=== PATIENT | female | born 2000 | race Caucasian/White ===

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

== ENCOUNTER 2020-07-05 15:45 | Day surgery (SDC) | payer OTHER ==
[2020-07-05 16:52] VITALS: BP 109/67; TEMP 98.6; BMI 23.2
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
== END 2020-07-05 20:17 | disposition home or self-care (01) ==
LOC: EEVIPCON 15:45 → L&D/OP 15:45
PROVIDERS: ATTEND Obstetrics & Gynecology
DX: O26.853 Spotting complicating pregnancy, third trimester (principal); O99.013 Anemia complicating pregnancy, third trimester; D64.9 Anemia, unspecified; O09.293 Supervision of pregnancy with other poor reproductive or obstetric history, third trimester; Z3A.29 29 weeks gestation of pregnancy

== ENCOUNTER 2020-07-21 09:30 | Day surgery (SDC) | payer OTHER ==
[2020-07-21 09:57] VITALS: BMI 23.2
[2020-07-21 09:59] VITALS: BP 104/63; TEMP 98
[2020-07-21] MEDS ORDERED: Iron Sucrose Complex 500 MG in Sodium Chloride 0.9% 250 ML 250 ML IVPB SCH (10:30)
[2020-07-21] MEDS ORDERED: Acetaminophen 500 MG TAB PO PRN (10:30)
[2020-07-21] MEDS ORDERED: FLU VACC QS2020-21(6MOS UP)/PF 60 MCG/0.5 ML SYRINGE IM ONE (11:00)
== END 2020-07-21 16:30 | disposition home or self-care (01) ==
LOC: L&D/OP 09:30
PROVIDERS: ATTEND Obstetrics & Gynecology
DX: O99.013 Anemia complicating pregnancy, third trimester (principal); Z3A.00 Weeks of gestation of pregnancy not specified
CPT/HCPCS: J1756; J7050

== ENCOUNTER 2020-07-21 17:24 | Day surgery (SDC) | payer OTHER ==
[2020-07-21 17:58] VITALS: BMI 23.2
[2020-07-21] MEDS ORDERED: diphenhydrAMINE 25 MG CAP PO SCH (18:00)
--- NOTE | 2020-07-21 18:02 | PDOC.LDHP ---
Labor and Delivery H&P Chief complaint: other (Feet Swelling) HPI: 20yo @ 31wks presents following an iron infusion earlier today and subsequent pedal swelling. Pt stated that during and immediately after the infusion she was feeling fine. On he way home she stopped to get gas and when she was standing there she started to feel her right foot was swollen. This progressed to both of her feet and feeling like it was going up her lower legs. The swelling caused her feet to feel tingly. Denies any difficulty breathing, swallowing, rash, dizziness, palpitations. Current gestational age (weeks): 31 (3) Grav: 3 Para: 1 Current complications: other (anemia of ) Past Medical History: None Current medications: pre- vitamins, iron Previous surgical history: none Allergies/Adverse Reactions: Allergies Allergy/AdvReac Type Severity Reaction Status Date / Time No Known Drug Allergies Allergy Verified 07/21/20 17:58 Social history: none - Physical Exam Vital signs reviewed and normal: yes General: NAD, resting, other (no pharyngeal swelling, drooling, difficulty swallowing, muffled voice) Heart: RRR Lungs: other (CTAB, no wheezing/stridor) Abdomen: NTTP Extremeties: other (mild non-pitting, primarily pedal, slight to lower legs; Skin: no erythema, urticaria) FHT: category 1, variability present [place] contractions every: 0 - Assessment Possible Infusion Reaction - 3rd Trimester IUP - Plan -: -Pedal swelling likely 2/2 IVF with iron infusion -Observe for 1 hour for progression of sx -50mg benadryl to cover for possible delayed allergic reaction Plan: 1 hour of monitoring - pt feeling better, swelling improving, no additional sx developed. Discussed return precautions. Keep routine follow up as previously scheduled.
[2020-07-21 18:06] VITALS: BP 108/68; TEMP 98.2
[2020-07-21] MEDS ORDERED: FLU VACC QS2020-21(6MOS UP)/PF 60 MCG/0.5 ML SYRINGE IM ONE (21:00)
== END 2020-07-21 18:49 | disposition home or self-care (01) ==
LOC: L&D/OP 17:24
PROVIDERS: ATTEND Obstetrics & Gynecology
DX: O99.891 Other specified diseases and conditions complicating pregnancy (principal); M79.89 Other specified soft tissue disorders; O99.013 Anemia complicating pregnancy, third trimester; D64.9 Anemia, unspecified; Z3A.31 31 weeks gestation of pregnancy
CPT/HCPCS: Q0163

== ENCOUNTER 2020-09-08 20:38 | Inpatient (IN) | payer OTHER ==
[~2020-09-08 20:38] MED LIST: Bupivacaine/Epinephrine 0.25% 30 ML VIAL ONE
[2020-09-08 21:16] VITALS: BMI 24.8
[2020-09-08] MEDS ORDERED: hydrALAZINE 20 MG/ML VIAL SLOW IVP PRN ×2 (21:31→21:50)
[2020-09-08] MEDS ORDERED: FLU VACC QS2020-21(6MOS UP)/PF 60 MCG/0.5 ML SYRINGE IM ONE (21:45)
[2020-09-08] MEDS ORDERED: Lidocaine 1% (PF) 30 ML VIAL SC PRN (21:50)
[2020-09-08] MEDS ORDERED: Ondansetron PF 4 MG/2 ML Vial IVP PRN (21:50)
[2020-09-08] MEDS ORDERED: Ibuprofen 800 MG TAB PO PRN (21:50)
[2020-09-08] MEDS ORDERED: Promethazine HCl 25 MG/ML VIAL IM PRN (21:50)
[2020-09-08] MEDS ORDERED: Butorphanol Tartrate 1 MG/ML VIAL SLOW IVP PRN (21:50)
[2020-09-08] MEDS ORDERED: HYDROcodone/Acetaminophen 5/325 mg Tablet PO PRN ×2 (21:50)
--- NOTE | 2020-09-08 21:51 | PDOC.BPN ---
- Brief Progress Note OBGYN At bedside Due to CTX pain, we will admit and check GBS.
[2020-09-08] MEDS: Lactated Ringer's 1,000 ML IV SCH (22:00)
--- NOTE | 2020-09-08 22:29 | HP ---
It is now 2133. Time of evaluationis roughly 2114. LOCATION: Labor and Delivery Triage in room #6. This is a patient of Dr. Ojeda. CHIEF COMPLAINT: Possible contractions at 38 weeks and 3 days. HISTORY OF PRESENT ILLNESS: This is a 20-year-old G3, P1, who is at 38 weeks and 3 days with an EDC of 09/20, complained of contractions about every 3 to 5 minutes or so. She denies any vaginal bleeding or leakage of fluid, and she has good movement. She denies any recent trauma or any other issues. She does state that she had a transfusion of iron on July 21, 2020, and then she came back for some tingling on one side of her arm, but she was evaluated and sent home. REVIEW OF SYSTEMS: GENERAL: She has had no sick contacts and no history of trauma. She denies any general malaise. CARDIOVASCULAR: The patient denies any chest pain. RESPIRATORY: No shortness of breath or dyspnea. ABDOMEN: No GI issues reported. EXTREMITIES: The patient denies any pain or abnormal swelling in her extremities outside of her normal for . PAST MEDICAL HISTORY: Negative except for anemia of . MEDICATIONS: Include: 1. Iron. 2. vitamins. PAST SURGICAL HISTORY: None. OBSTETRICAL HISTORY: She has had a vaginal delivery x1 at term. ALLERGIES: NONE. SOCIAL HISTORY: Negative for alcohol, tobacco, and drug use. PHYSICAL EXAMINATION: VITAL SIGNS: Blood pressure 109/62, pulse is 105, respirations are 18, and temperature is 99.1. GENERAL: She is in no acute distress, but looks like she is having some contraction discomfort. ABDOMEN: Soft and nontender and gravid and size is consistent with a gestational age. PELVIC: Cervical exam; in brief, there is no gross evidence of leakage of fluid or rupture of membranes and her cervix is 3 cm dilated, 50% effaced, -2 station, and should be noted she was 3 cm in the office at her last check. EXTERNAL MONITORING: I evaluated the strip and I find the stored strip to be reactive with moderate variability. She is dixon pretty regularly about every 3 minutes or so. Cat 1. Again, on external monitor, heart rate is category 1 with contractions every 3 minutes. ASSESSMENT: This is a 20-year-old G3, P1, with a previous vaginal delivery in the past, who is at 38 weeks and 3 days, which is early term with regular contractions and what looks like latent labor in early term. GBS Neg. PLAN: 1. Labor observation. 2. Because she is having regular contractions, I suspect she will stay, but we will see what she does in 2 hours. 3. Pain management p.r.n. 4. If there is evidence of labor progress, we will admit her and we will notify Dr. Ojeda to see if he will resume care or if we will manage. Job ID: [id number] [facility]
[2020-09-08 23:07] LABS: Mean Corpuscular HGB CONC 33.7 g/dL (32.0-36.0); Mean Corpuscular Hemoglobin 27.9 pg (25.0-35.0); Mean Corpuscular Volume 82.6 fL (78.0-98.0); Mean Platelet Volume 8.3 fL (7.4-10.4); Platelet Count 175 thou/uL (130-400); White Blood Cell (WBC) Count 10.1 thou/uL (4.8-10.8)
[2020-09-08 23:46] LABS: HBSAg Index 0.17 S/CO (0-0.99); HIV (1/2) Antibody/Antigen Non-Reactive (NonReactive); HIV 1/2 INDEX 0.18 S/CO (<1.00); Hep B Surf Ag Non-Reactive S/CO (NonReactive)
[2020-09-08 23:48] LABS: Syphilis Antibody Nonreactive (Nonreactive); Syphilis Antibody Index 0.02 S/CO (<1.00 Non-Reactive)
--- NOTE | 2020-09-09 00:59 | PDOC.LDPN ---
Labor & Delivery Progress Note - Subjective Subjective: comfortable - Objective Vital signs reviewed and normal: yes General: NAD, resting, breathing through contractions SVE: 70/-2 FHT: category 1 (accels, no deccels, baseline 110) [place] contractions every: 3-4 Plan: continue plan of care -: 20yo @ 38.4 presented for ctx. #Term, SIUP, latent labor - SVE 50/-2 at presentation - SVE /-2 @ 0030 - Reassuring FHT, regular ctx q3-4min - continue expectant management PCP: Rusty Dispo: Continue expectant management. Recheck SVE in approx 4 hours.
[2020-09-09] MEDS ORDERED: Fentanyl 4 mcg/Bup 0.1% Cadd 100 ML in Premix Bag 1 BAG EPIDURAL SCH (02:15)
[2020-09-09] MEDS ORDERED: Naloxone HCl 0.4 mg/ml Vial IVP PRN ×2 (02:51)
[2020-09-09] MEDS ORDERED: Ondansetron PF 4 MG/2 ML Vial IVP PRN ×2 (02:51→11:13)
[2020-09-09] MEDS ORDERED: ePHEDrine 50 MG/ML VIAL SLOW IVP PRN (02:51)
[2020-09-09] MEDS ORDERED: diphenhydrAMINE 50 MG/ML VIAL IVP PRN (02:51)
[2020-09-09] MEDS ORDERED: Lactated Ringer's 500 ML IV PRN (02:51)
[2020-09-09] MEDS ORDERED: Promethazine HCl 25 MG/ML VIAL IM PRN ×2 (02:51→11:13)
[2020-09-09] MEDS: Lactated Ringer's 1,000 ML IV SCH (02:51)
[2020-09-09] MEDS ORDERED: Acetaminophen 325 MG TAB PO PRN (02:51)
[2020-09-09] MEDS ORDERED: Fentanyl 4 mcg/Bupivacaine 0.1% Cassette 100 ML EPIDURAL SCH (03:00)
[2020-09-09] MEDS ORDERED: Communication Order-Pharmacy FS SCH (03:00)
[2020-09-09 06:00] LABS: SARS-CoV-2 MS2 Positive; SARS-CoV-2 N Gene Negative; SARS-CoV-2 S Gene Negative; SARS-CoV-2 by NAA Not Detected (NotDetected); SARS-CoV-2 orf1ab Negative
--- NOTE | 2020-09-09 06:04 | PDOC.LDPN ---
Labor & Delivery Progress Note - Subjective Subjective: vaginal pressure - Objective Vital signs reviewed and normal: yes General: resting Uterine fundus: non tender SVE: Last at 0430 Dilation: 6 Effacement: 90% Station: -1 FHT: category 1 [place] contractions every: looks like every 2-3 Plan: continue plan of care (Labor at 38 weeks 4 days. Now 6cm last check. Cat 1.)
--- NOTE | 2020-09-09 08:59 | PRG ---
DATE OF SERVICE: 09/09/2020 TIME: 0815 hours. TIME OF EVALUATION: 0800 hours to 0812 hours. LOCATION: [facility] bed 6. Please label this ER evaluation at bedside. In brief, I evaluated the patient just as we were having our [employer] team check out. Dr. Gifford and Dr. Strong joined me after I started the evaluation. First in the room were Dr. Gifford and myself. We were called for vaginal bleeding of about 100 to 200 mL of blood on the pad. When we arrived, there was no active bleeding any further, although she had passed a very small clot. We evaluated the tracing and there was great variability. There was a small variable deceleration noted initially when we arrived. She was 8 cm dilated, completely effaced, and -[address] Gifford performed an AROM with me at bedside, so that we could try to assess the amniotic fluid. Amniotic fluid was clear with slight blood tinge. We are still at bedside after the immediate AROM and no cord prolapse was noted. She is now having variable decelerations but again with continued moderate variability. We put on the pulse ox on the mother to confirm slight tachycardia and she is slightly tachycardic, although she states that she is quite anxious and does not want a . She does not have a family member here because her is with another child at home. Contractions about every 1 to 2 minutes. DIAGNOSIS: Active labor with vaginal bleeding at 8 cm, possible marginal separation versus other. PLAN: 1. Second IV started. 2. Typed and crossed for 2 units. 3. Stat H and H now. 4. I have discussed with her at bedside the possibility of a if this does not resolve. Dr. Strong is with me and we have discussed plan of care as well. Questions answered for the patient. Job ID: [id number]
[2020-09-09] MEDS: NS w/ Oxytocin 30 units 500 ML IV PRN ×2 (09:00→10:04)
[2020-09-09] MEDS ORDERED: Misoprostol 200 MCG TAB ONE ×4 (09:10→09:11)
[2020-09-09] MEDS ORDERED: Misoprostol 200 MCG TAB PR PRN (09:21)
[2020-09-09 09:34] LABS: Hemoglobin 10.9 g/dL (12.0-16.0); Platelet Count 151 thou/uL (130-400)
--- NOTE | 2020-09-09 09:58 | DN ---
DATE OF PROCEDURE: 09/09/2020 TIME OF SERVICE: 0853. PREDELIVERY DIAGNOSES: 1. Vaginal bleeding, concerning for possible abruption with moderate variable decelerations and complete +3 station at 38 weeks gestation with spontaneous onset of labor. 2. Group B strep negative. POSTDELIVERY DIAGNOSES: 1. Vaginal bleeding, concerning for possible abruption with moderate variable decelerations and complete +3 station at 38 weeks gestation with spontaneous onset of labor. 2. Group B strep negative. 3. Approximately, 5% marginal abruption as noted grossly by clot on the placenta. PROCEDURES PERFORMED: Spontaneous vaginal delivery without laceration. SURGEON: John Ojeda MD for [facility] ANESTHESIA: Epidural. BLOOD LOSS: Quantitative blood loss, 300 mL. DRAINS: Nunez removed prior to delivery. OPERATIVE FINDINGS: 1. Male , Apgars and weight pending. Vigorous, initially placed on the maternal abdomen with delayed cord clamp and cut. 2. Placenta delivered spontaneously approximately 3 minutes post delivery with gross appearance of a small marginal abruption, approximately 5% of placental surface area. 3. Hemostasis. No lacerations and correct counts at the end of the procedure. DISPOSITION: Routine care. DESCRIPTION OF PROCEDURE: I was called for delivery after Dr. Quesada managed the patient during the evening. Upon arrival, she was noted to have moderate variable deceleration to be complete and +3 station. No efforts of maternal pushing had been attempted by the nursing staff. The patient was set up in lithotomy for delivery. With the next contraction, the patient pushed 3 times and delivered spontaneously over an intact perineum. No nuchal cord was noted. Copious, bloody, but otherwise, clear amniotic fluid was noted. The baby was placed on the maternal abdomen, and delayed cord clamp and cut carried out approximately 1 to 2 minutes post delivery. Usual cord blood sample was obtained. Gas was not obtained. The placenta delivered spontaneously and the gross findings as noted. Because, the decision was made not to send the placenta for pathology, as no benefit beyond noting the small area of abruption at the margin with an old clot could be appreciated. Inspection of the vagina revealed there to be no lacerations. The uterus firmed up within 60 seconds of delivery. The patient entered into routine care. Of note, the patient was chronically anemic during the and received IV iron x1. Predelivery hematocrit was 29%. Job ID: [id number]
[2020-09-09] MEDS ORDERED: Milk Of Magnesia 30 ML UDCUP PO PRN (11:13)
[2020-09-09] MEDS ORDERED: Zolpidem Tartrate 5 MG TAB PO PRN (11:13)
[2020-09-09] MEDS ORDERED: hydrALAZINE 20 MG/ML VIAL SLOW IVP PRN (11:13)
[2020-09-09] MEDS ORDERED: Lanolin Ointment 7 GM TUBE TOP PRN (11:13)
[2020-09-09] MEDS ORDERED: Preparation H Ointment 28 GM TUBE PR PRN (11:13)
[2020-09-09] MEDS ORDERED: HYDROcodone/Acetaminophen 5/325 mg Tablet PO PRN ×2 (11:13)
[2020-09-09] MEDS ORDERED: Benzocaine-Menthol 82.5 ML CAN TOP PRN (11:13)
[2020-09-09] MEDS ORDERED: diphenhydrAMINE 25 MG CAP PO PRN (11:13)
[2020-09-09] MEDS ORDERED: Bisacodyl 10 MG SUPP PR PRN (11:13)
[2020-09-09] MEDS ORDERED: NS / Oxytocin 40 units/1000ml 1,000 ML IV SCH (11:13)
[2020-09-09] MEDS ORDERED: Adacel (T-DAP) 0.5 ML SYRINGE IM ONE (11:13)
[2020-09-09] MEDS: Ibuprofen 800 MG TAB PO SCH ×2 (14:57→21:28)
[2020-09-09] MEDS: Ferrous Sulfate 325 MG TAB PO SCH (18:06)
[2020-09-09] MEDS: Docusate Calcium (SURFAK) 240 MG CAP PO SCH (21:28)
[2020-09-10] MEDS: Ibuprofen 800 MG TAB PO SCH ×3 (05:40→21:57)
[2020-09-10] MEDS ORDERED: FLU VACC QS2020-21(6MOS UP)/PF 60 MCG/0.5 ML SYRINGE IM ONE (09:00)
[2020-09-10] MEDS: Prenatal Vitamin 1 TAB PO SCH (09:08)
[2020-09-10] MEDS: Docusate Calcium (SURFAK) 240 MG CAP PO SCH ×2 (09:08→21:57)
[2020-09-10] MEDS: Ferrous Sulfate 325 MG TAB PO SCH ×2 (09:09→17:03)
--- NOTE | 2020-09-10 14:29 | PRG ---
DATE OF SERVICE: 09/10/2020 TIME OF SERVICE: 1400 hours. SUBJECTIVE: Ms. Uribe was seen, utilizing virtual visit HIPAA compliant platform on [employer]. She has no complaints. The patient in nursing notes reports scant lochia. OBJECTIVE: VITAL SIGNS: Temperature 98.1, pulse 72, respirations 16, blood pressure 104/67. HEENT: Within normal limits. LUNGS: On auscultation, bilaterally clear according to the nursing. ABDOMEN: Soft and nontender with a firm fundus and normal lochia. LABORATORY DATA: Immediate hematocrit was 34.2% yesterday. The patient's is in the NICU with mild respiratory distress requiring face mask oxygen secondary to tachypnea. The patient states that Nursery Care believes that this is secondary to bloody amniotic fluid. Anticipated stay of the baby in the nursery is 3 to 5 days. IMPRESSION: Doing well on day #1, status post vaginal delivery with very small marginal abruption without laceration of the perineum. PLAN: Routine care. Anticipate discharge tomorrow to [facility] or [employer] utilization. Job ID: [id number]
[2020-09-11] MEDS: Ibuprofen 800 MG TAB PO SCH ×2 (05:53→14:59)
[2020-09-11] MEDS: Prenatal Vitamin 1 TAB PO SCH (08:12)
[2020-09-11] MEDS: Docusate Calcium (SURFAK) 240 MG CAP PO SCH (08:12)
[2020-09-11] MEDS: Ferrous Sulfate 325 MG TAB PO SCH ×2 (08:13→17:14)
[2020-09-11 09:38] VITALS: BP 122/63; TEMP 98.3
== END 2020-09-11 17:55 | disposition home or self-care (01) | DRG 805 ==
LOC: L&D/OP 20:38 → L&D 21:50 → 3SW 09-09 12:03
PROVIDERS: ADMIT Obstetrics & Gynecology; ATTEND Obstetrics & Gynecology
PROC: 10E0XZZ Delivery of Products of Conception, External Approach (ICD-10-PCS; principal; 2020-09-09)
PROC: 10907ZC Drainage of Amniotic Fluid, Therapeutic from Products of Conception, Via Natural or Artificial Opening (ICD-10-PCS; 2020-09-09)
DX: O76 Abnormality in fetal heart rate and rhythm complicating labor and delivery (principal); O45.93 Premature separation of placenta, unspecified, third trimester; Z37.0 Single live birth; Z20.828 Contact with and (suspected) exposure to other viral communicable diseases; Z3A.38 38 weeks gestation of pregnancy
CPT/HCPCS: 36415; 51702; 85014; 85018; 85027; 85049; 86780; 86850; 86900; 86901; 87340; 87389; 87635; 99285; J1200; J2405; J2590; U0003

== ENCOUNTER 2020-09-12 16:48 | Inpatient (IN) | payer OTHER ==
[2020-09-12 17:59] LABS: Mean Corpuscular Hemoglobin 28.6 pg (25.0-35.0); RBC Distribution Width 17.9 % (11.5-14.5); Red Blood Cell (RBC) Count 2.81 mill/uL (4.00-5.20); White Blood Cell (WBC) Count 9.1 thou/uL (4.8-10.8)
--- NOTE | 2020-09-12 18:02 | ULT ---
EXAM: Pelvic ultrasound HISTORY: Pelvic pain; patient recently delivered a baby COMPARISON: None TECHNIQUE: Multiple grayscale and color Doppler images were obtained in a transabdominal pelvic ultra sound. FINDINGS: CERVIX: No evidence of nabothian cysts. UTERUS: Enlarged in size without focal abnormality. No retained products of conception. ENDOMETRIAL STRIPE: 9 mm. No free fluid is seen in the pelvis. RIGHT OVARY: Not visualized LEFT OVARY: Not visualized IMPRESSION: Enlarged uterus secondary to recent state without retained products of concept ion.
[2020-09-12 18:11] LABS: ALT (SGPT) 10 U/L (8-55); AST (SGOT) 16 U/L (5-34); Albumin 3.3 g/dL (3.5-5.0); Alkaline Phosphatase 132 U/L (40-100); Anion Gap 16 mmol/L (10-20); BUN (Urea Nitrogen) 5 mg/dL (7.0-18.7); Bilirubin, Total 0.3 mg/dL (0.2-1.2); Calc. Creatinine Clearance 0 mL/min (70-130); Calcium 8.3 mg/dL (7.8-10.44); Carbon Dioxide 22 mmol/L (22-29); Chloride 106 mmol/L (98-107); Glucose 84 mg/dL (70-105); Potassium 3.3 mmol/L (3.5-5.1); Protein, Total 6.3 g/dL (6.0-8.3); Sodium 141 mmol/L (136-145)
[2020-09-12 18:22] LABS: #Eosinphils 0.1 thou/uL (0.0-0.7); #Lymphocytes 1.6 thou/uL (1.20-3.40); #Monocytes 0.4 thou/uL (0.11-0.59); %Basophils 0.1 % (0.0-1.0); %Eosinophils 1.3 % (0.0-10.0); %Lymphocytes 17.7 % (28.0-48.0); %Monocytes 3.9 % (0.0-4.0); %Neutrophils 76.9 % (31.0-61.0); Anisocytosis SLIGHT = 6-15 cells (100X) (0-5/hpf); MDiff Complete? YES; Mean Platelet Volume 13.4 fL (7.4-10.4); Platelet Count 46 thou/uL (130-400); Platelet Morphology Comment Appears Decreased; Polychromasia SLIGHT = 2-3 cells (100X) (0-2/hpf)
[2020-09-12 18:35] LABS: Bilirubin Negative (Negative); Blood, Urine 3+ (Negative); Clarity Clear (Clear); Glucose, Urine (Dipstick) Normal (Negative); Ketone, Urine Negative (Negative); Leukocyte 500 Leu/uL (Negative); Nitrite Negative (Negative); Protein, Urine (Dipstick) Negative (Neg-Trace); Specific Gravity, Urine 1.004 (1.002-1.036); Squamous Epithelial 0-3 HPF (0-3); Urobilinogen Normal mg/dL (Less than 2); WBC/HPF 21-50 HPF (0-3)
[2020-09-12 18:37] LABS: Bacteria/HPF 1+ HPF (None Seen)
--- NOTE | 2020-09-12 19:03 | RAD ---
PORTABLE CHEST: 09/12/20 PROVIDED CLINICAL HISTORY: Fever. FINDINGS: Comparison 01/26/19. Cardiac and mediastinal silhouette is within normal limits. The lungs appear clear. No pleural fluid or pneumothorax apparent. IMPRESSION: No evidence for an acute cardiopulmonary process. POS: [place]
[2020-09-12] MEDS ORDERED: Ondansetron ODT 4 MG TAB PO PRN (19:05)
[2020-09-12] MEDS ORDERED: Acetaminophen 325 MG TAB PO PRN (19:05)
[2020-09-12] MEDS ORDERED: Potassium Chloride 20 MEQ TAB PO SCH (19:15)
[2020-09-12] MEDS ORDERED: Piperacillin/Tazobactam 4.5 GM VIAL ONE (19:29)
--- NOTE | 2020-09-12 19:53 | PDOC.H&P ---
- History & Physical Encounter Time: 09/12/20 Encounter Time: 18:45
[2020-09-12] MEDS ORDERED: Clindamycin/D5W 900 mg/50 ml Premix Bag ONE (20:13)
--- NOTE | 2020-09-12 20:33 | HP ---
TIME OF SERVICE: 1845 hours. CHIEF COMPLAINT: Fever. HISTORY OF PRESENT ILLNESS: This is a 20-year-old, G3, P2-0-1-2, who is status post spontaneous vaginal delivery on 09/09/2020, who presented to the emergency department for fever. She was discharged yesterday and noted some lower abdominal pain, but attributed that to not having any pain medicine. She had trouble sleeping due to the pain. She reports that today she had a fever of 101.5 at home as well as myalgias and just generally not feeling well. She denies any heavy vaginal bleeding, UTI symptoms, shortness of breath, breast problems, back pain, or other concerns. REVIEW OF SYSTEMS: Negative for head, eyes, ears, nose, throat, cardiovascular, respiratory, GI, , neuro, psych, musculoskeletal, skin, and constitutional symptoms other than mentioned above. PAST MEDICAL HISTORY: Negative except for anemia of . PAST SURGICAL HISTORY: None. MEDICATIONS: 1. Iron. 2. vitamins. 3. Tylenol. ALLERGIES: NO KNOWN DRUG ALLERGIES. OBSTETRIC HISTORY: She has had 2 vaginal deliveries at term, the most recent on 09/09. She had a second-degree laceration and it was also complicated by a suspected small abruption. SOCIAL HISTORY: Negative for alcohol, tobacco, or drug use. FAMILY HISTORY: Noncontributory. PHYSICAL EXAMINATION: VITAL SIGNS: Blood pressure 137/86, pulse 87, respiratory rate 18, temperature 99.1, and O2 saturation 100% on room air. GENERAL: Awake and alert, in no acute distress. Does not appear toxic. HEART, LUNGS, AND BREASTS: Not repeated, but per nurse practitioner were negative for any abnormal findings. There was no evidence of mastitis and a small amount of engorgement bilaterally. ABDOMEN: Soft, moderately tender to palpation of the fundus. PELVIC: Perineal laceration repair appeared without any evidence of infection. IMAGING STUDIES: Transvaginal ultrasound was performed, revealing a normally enlarged uterus without any evidence of retained products of conception. Chest x-ray appeared without any acute cardiopulmonary process. LABORATORY DATA: WBC 9.1, hemoglobin 8.0, hematocrit 23.6, platelets 46,000, neutrophils 76.9%, and no bandemia noted. Chemistry; potassium 3.3, otherwise unremarkable. Urine; 3+ blood, 500 leukocyte esterase, 21 to 50 urine white blood cells, and 1+ bacteria. ASSESSMENT AND PLAN: A 20-year-old, G3, P2-0-1-2, day 3 status post a term spontaneous vaginal delivery, complicated by a small abruption and second-degree laceration with: 1. fever. Exam most consistent with early endometritis with no other significant findings. Urine does have bacteria, but is also contaminated with blood. She will be admitted to the floor for IV antibiotics including Zosyn and clindamycin. 2. Thrombocytopenia. I will repeat her CBC with differential in the morning. If it does not improve, we will potentially consult Medicine. 3. Hypokalemia. K-Dur 20 mEq p.o. x1 ordered. 4. Anemia of as well as secondary to acute blood loss, asymptomatic. We will continue to monitor. 5. COVID-19 pending Job ID: [id number] [facility]
[2020-09-12] MEDS ORDERED: Acetaminophen 325 MG TAB ONE (20:46)
[2020-09-12] MEDS: Clindamycin/D5W 900 MG in Premix Bag 1 BAG IVPB SCH (22:00)
[2020-09-12] MEDS: Sodium Chloride 0.9% 1,000 ML IV SCH (22:09)
[2020-09-13] MEDS: Piperacillin/Tazobactam 3.375 GM in Sodium Chloride 0.9% 100 ML IVPB SCH ×4 (00:11→18:40)
[2020-09-13] MEDS: Clindamycin/D5W 900 MG in Premix Bag 1 BAG IVPB SCH ×3 (03:27→20:04)
[2020-09-13] MEDS: Sodium Chloride 0.9% 1,000 ML IV SCH ×3 (05:15→18:40)
--- NOTE | 2020-09-13 07:47 | PDOC.BPN ---
- Brief Progress Note Encounter Date: 09/13/20 Encounter Time: 07:00 S: Patient feeling much better. Body aches and abdominal pain improved. Has a spot on upper back that is bothering her. O: Vital Signs - Most Recent Temp Pulse Resp BP Pulse Ox 97.9 F 79 16 123/75 09/13/20 03:30 09/13/20 03:30 09/13/20 03:30 09/13/20 03:30 Gen - AAO, NAD Abd - soft, mild fundal tenderness Back - 4cm patch of dry appearing skin on left scapula, tender to touch. Ext - no edema A/P: 20 y/o PPD#4 with 1. Endometritis - on zosyn and clinda, clinically improving. Continue current management 2. Patch on upper back - possibly due to tape from epidural vs other contact dermatitis, continue to monitor 3. Covid pending 4. Will check out to Dr. Monson who will take over.
[2020-09-13 08:47] LABS: #Eosinphils 0.2 thou/uL (0.0-0.7); #Monocytes 0.6 thou/uL (0.11-0.59); #Neutrophils 8.8 thou/uL (1.40-6.50); %Basophils 0.2 % (0.0-1.0); %Eosinophils 1.8 % (0.0-10.0); %Lymphocytes 9.5 % (28.0-48.0); %Monocytes 5.8 % (0.0-4.0); %Neutrophils 82.7 % (31.0-61.0); Hemoglobin 7.6 g/dL (12.0-16.0); Mean Corpuscular Volume 84.7 fL (78.0-98.0); Mean Platelet Volume 7.5 fL (7.4-10.4); Platelet Count 175 thou/uL (130-400); RBC Distribution Width 17.8 % (11.5-14.5); Red Blood Cell (RBC) Count 2.72 mill/uL (4.00-5.20); White Blood Cell (WBC) Count 10.6 thou/uL (4.8-10.8)
[2020-09-13 13:39] LABS: SARS-CoV-2 MS2 Positive; SARS-CoV-2 N Gene Negative; SARS-CoV-2 S Gene Negative; SARS-CoV-2 by NAA Not Detected (NotDetected); SARS-CoV-2 orf1ab Negative
[2020-09-14] MEDS: Piperacillin/Tazobactam 3.375 GM in Sodium Chloride 0.9% 100 ML IVPB SCH ×2 (00:14→06:02)
[2020-09-14] MEDS: Clindamycin/D5W 900 MG in Premix Bag 1 BAG IVPB SCH (04:03)
[2020-09-14] MEDS: Sodium Chloride 0.9% 1,000 ML IV SCH (04:09)
--- NOTE | 2020-09-14 06:47 | PDOC.EVN ---
Event Note - Event Note Event Note: Zosyn/Clinda #2 Feeling much better Has been AF since admit. VSS Abdomen is soft and NT Requests DC home, will DC on Cipro for f/u tx of potential UTI Precautions given. RTC with Dr. Ojeda in 2 weeks.
[2020-09-14 10:55] VITALS: BP 126/78; TEMP 98.1
== END 2020-09-14 10:50 | disposition home or self-care (01) | DRG 776 ==
LOC: ERS 16:48 → 3SW 19:05
PROVIDERS: ADMIT Obstetrics & Gynecology; ATTEND Obstetrics & Gynecology
DX: O86.12 Endometritis following delivery (principal); D62 Acute posthemorrhagic anemia; Z20.828 Contact with and (suspected) exposure to other viral communicable diseases; O72.3 Postpartum coagulation defects; D69.6 Thrombocytopenia, unspecified; E87.6 Hypokalemia; O99.825 Streptococcus B carrier state complicating the puerperium; O90.81 Anemia of the puerperium
CPT/HCPCS: 36415; 71045; 76856; 80053; 81003; 81015; 83605; 85025; 87040; 87086; 87635; 96365; 96367; J2543; J3490; U0003